=== PATIENT | female | born 1950 | race Caucasian/White ===

== ENCOUNTER 2019-10-21 09:26 | Emergency (ER) | payer MEDICARE, OTHER ==
[~2019-10-21] VITALS: Ht 154.9 cm; Wt 49.9 kg
--- NOTE | 2019-10-21 09:29 | NUR ---
ARRIVAL PATIENT ARRIVED TO [facility], C/O OF LEFT FLANK OFF AND ON FOR THE PAST ONE WEEK, NO PAIN TODAY, BUT DOES LIVE IN [place] AND WAS AFRAID TO LEAVE FOR HOME, DOES HAVE A HISTORY OF KIDNEY STONES, DOCTOR GUSTAVO TO ROOM TO SEE PATIENT.
[2019-10-21 09:46] VITALS: BP 151/89
[2019-10-21 09:49] VITALS: BP 151/89
--- NOTE | 2019-10-21 09:50 | ER.PDOC ---
General Chief Complaint: Requesting Medical Care Stated Complaint: FEMALE / DYSURIA Time seen by MD: 10:00 Source: patient Exam Limitations: no limitations History of Present Illness Timing/Duration: yesterday, intermittent Severity/Quality: mild, burning LMP (females 10-50): postmenopause Sexual [place] History: not active Contraceptive: none Associated Symptoms: dysuria, urinary frequency Prior symptoms/Treatment: Similar symptoms previous Allergies: Coded Allergies: No Known Allergies (Unverified , 10/21/19) Past Medical History Medical History: no pertinent history LMP (females 10-50): postmenopause Social History Alcohol Use: none Drug Use: none Review of Systems All Other Systems: Reviewed and Negative Physical Exam General Appearance: No Apparent Distress, WD/WN EENT: eyes nml inspection, nml ENT inspection, pharynx nml Neck: nml inspection, non-tender Cardiovascular/Respiratory: Regular Rate, Rhythm, No M/R/G, Normal Peripheral Pulses, No JVD, Normal Breath Sounds, No Respiratory Distress Abdomen: Normal Bowel Sounds, Non Tender, Soft, No Organomegaly, No Pulsatile Mass Back: nml inspection Extremities: Normal Range of Motion, Non-Tender, Normal Inspection, No Pedal Edema, No Calf Tenderness, Normal Capillary Refill 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, No Motor/Sensory Deficits, Alert, Normal Mood/Affect, Oriented x 3 Skin: Normal Color, Warm/Dry Lymphatic: No Adenopathy Results/Orders Results/Orders Orders - NICHELLE CHEN MD Urinalysis (10/21/19 09:45) Urine Culture (10/21/19 09:45) Vital Signs Date Time Temp Pulse Resp B/P (MAP) Pulse Ox O2 Delivery O2 Flow Rate FiO2 10/21/19 09:49 98.4 101 20 10/21/19 09:49 98.4 101 20 151/89 (109) 100 Room Air 10/21/19 09:46 98.4 101 20 100 Laboratory Tests Test 10/21/19 09:45 Urine Collection Type UNKNOWN Urine Color YELLOW (YELLOW) Urine Appearance CLOUDY (CLEAR) H Urine Bilirubin NEGATIVE MG/DL (NEGATIVE) Urine Ketones NEGATIVE (NEGATIVE) Urine Specific [place] 1.020 (1.005-1.035) Urine pH 7 (5.0-6.0) Urine Protein 30 mg/dL (NEGATIVE) H Urine Urobilinogen 1.0 (NEGATIVE) H Urine Nitrate NEGATIVE (NEGATIVE) Urine Leukocyte Esterase 500/uL 2+ (NEGATIVE) Urine Blood 10 TR (NEGATIVE) H Urine RBC 2-5 RBC/HPF (NONE SEEN) Urine WBC TNTC WBC/HPF (0-2) H Urine Squamous Epithelial Cells FEW #/HPF (FEW) Urine Bacteria MANY (NONE SEEN) H Urine Glucose NORMAL (NEGATIVE) Departure Time of Disposition: 10:22 Disposition: 01 HOME, SELF-CARE Impression: Primary Impression: Cystitis Condition: Stable Referrals: BA TORRES (PCP) PRIMARY CARE PROVIDER Duration or Time Spent with Pa: NICHELLE MITCHELL MD Oct 21, 2019 09:50
[2019-10-21 10:11] LABS: APPEARANCE,URINE CLOUDY (CLEAR); UA COLOR YELLOW (YELLOW)
[2019-10-21 10:12] LABS: BILIRUBIN,URINE NEGATIVE (NEGATIVE)
== END 2019-10-21 10:30 | disposition home or self-care (01) ==
LOC: ER 09:26
DX: N30.90 Cystitis, unspecified without hematuria (principal)
CPT/HCPCS: 81000; 87077; 87086; 87186; 99283

== ENCOUNTER 2021-04-22 13:16 | Emergency (ER) | payer MEDICARE, OTHER ==
[~2021-04-22] VITALS: Ht 154.9 cm; Wt 45.4 kg
[2021-04-22 14:31] VITALS: BP 147/80
[2021-04-22 14:34] VITALS: BP 147/80
[2021-04-22 14:35] VITALS: BP 147/80
--- NOTE | 2021-04-22 14:35 | NUR ---
ARRIVAL PT ARRIVED FROM HOME. PT [place] AND HAS URGENCY AND DIFFICULTY URINATING. UA OBTAINED PER DR CHEN ORDERS. HOOKED UP TO ALL MONITORS.
[2021-04-22 14:43] LABS: BILIRUBIN,URINE NEGATIVE (NEGATIVE)
--- NOTE | 2021-04-22 14:44 | ER.PDOC ---
General Chief Complaint: Female Urogenital Problems Stated Complaint: FEMALE Time seen by MD: 15:00 Source: patient Exam Limitations: no limitations History of Present Illness Timing/Duration: yesterday Severity/Quality: mild LMP (females 10-50): postmenopause Sexual [place] History: not active Contraceptive: none Associated Symptoms: dysuria, fever/chills Prior symptoms/Treatment: Similar symptoms previous Allergies: Coded Allergies: No Known Allergies (Unverified , 10/21/19) Past Medical History Medical History: parkinson Surgical History: hysterectomy Social History Alcohol Use: none Drug Use: none Reviewed Nursing Reviewed: Vital Signs, Abn. 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, No Motor/Sensory Deficits, Alert, Normal Mood/Affect, Oriented x 3 Skin: Normal Color, Warm/Dry Lymphatic: No Adenopathy Results/Orders Results/Orders Orders - NICHELLE CHEN MD Urinalysis (04/22/21 14:37) Urine Culture (04/22/21 14:27) Vital Signs Date Time Temp Pulse Resp B/P (MAP) Pulse Ox O2 Delivery O2 Flow Rate FiO2 04/22/21 14:35 98.1 89 16 147/80 (102) 98 04/22/21 14:34 98.1 89 16 04/22/21 14:31 98.1 89 16 98 Laboratory Tests Test 04/22/21 14:27 Urine Collection Type RANDOM Urine Color YELLOW Urine Appearance CLEAR Urine Bilirubin NEGATIVE (NEGATIVE) Urine Ketones TRACE (NEGATIVE) H Urine Specific [place] >=1.030 (1.005-1.030) Urine pH 5.5 (4.5-8.0) Urine Protein 2+ (NEGATIVE) H Urine Urobilinogen 1.0 E.U./dL (0.2) Urine Nitrate POSITIVE (NEGATIVE) H Urine Leukocyte Esterase 1+ (NEGATIVE) H Urine Glucose (Auto)(UA) NEGATIVE (NEGATIVE) Urine Blood 3+ (NEGATIVE) H Urine RBC TooNumerousToCount RBC/HPF (NONE Urine WBC TooNumerousToCount WBC/HPF (0-2) Urine Squamous Epithelial Cells MANY (<=FEW) Urine Bacteria MANY (NONE SEEN) H ER DEPART Departure Time of Disposition: 15:00 Disposition: 01 HOME / SELF CARE / HOMELESS Impression: Primary Impression: Cystitis Condition: Stable Referrals: BA TORRES (PCP) PRIMARY CARE PROVIDER Duration or Time Spent with Pa: NICHELLE RODRIGUEZ MD Apr 22, 2021 14:44
== END 2021-04-22 15:05 | disposition home or self-care (01) ==
LOC: ER 13:16
DX: N30.90 Cystitis, unspecified without hematuria (principal); Z90.710 Acquired absence of both cervix and uterus
CPT/HCPCS: 81001; 87077; 87086; 87186; 99283